=== PATIENT | female | born 1960 | race Two or more races ===

== ENCOUNTER 2023-07-12 08:28 | Day surgery (SDC) | payer OTHER ==
[~2023-07-12] VITALS: Ht 165.1 cm; Wt 60.8 kg
[~2023-07-12 08:28] MED LIST: ANDRODERM1 EAC1 TD; PROMETRIUM200 MG PO; YUVAFEM10 MCG VAG
[2023-07-12] MEDS ORDERED: RECTICARE30 GM TOP (13:21)
[2023-07-12] MEDS ORDERED: PERCOCET 5-3251 EACH PO (13:21)
== END 2023-07-12 18:45 | disposition home or self-care (01) ==
LOC: CIR.AMB 08:28
PROVIDERS: ATTEND Surgery
DX: A63.0 Anogenital (venereal) warts (principal); R19.4 Change in bowel habit; Z20.822 Contact with and (suspected) exposure to COVID-19; I10 Essential (primary) hypertension